=== PATIENT | female | born 1950 | race Caucasian/White ===

== ENCOUNTER 2018-07-03 11:10 | Emergency (ER) | payer MEDICARE, MEDICAID ==
[~2018-07-03] VITALS: Ht 152.4 cm; Wt 46.0 kg
[~2018-07-03 11:10] MED LIST: ALPR1TAB2 PO; AMLO2.5T2 PO; DULO30CA2 PO; FLUT1DIS3 INH; GUAI600T31 PO; HYDR-3237 PO; Hydrocodone Bit/Acetaminophen PO; IPRA12.9 IH; IPRA3AMP30 NPPB; LEVO750T26 PO; METO25TA35 PO; ONDA4TAB7 PO; PRED20TA PO; TIOT18CA INH
[2018-07-03] MEDS ORDERED: LIDOCAINE 1%, 10ML INFIL ONE (12:00)
[2018-07-03 12:04] LABS: MEAN CORPUSCULAR HEMOGLOBIN 26.2 pg (27.0-34.8); MEAN CORPUSCULAR HGB CONC 31.8 g/dL (32.4-35.8); MEAN CORPUSCULAR VOLUME 82.4 fL (80-100); MEAN PLATELET VOLUME 8.2 fL (7.4-10.4); PLATELET COUNT 224 x10^3/uL (130-400); RED BLOOD COUNT 4.92 x10^6/uL (3.82-5.3); RED CELL DISTRIBUTION WIDTH 32.3 % (9.6-15.2)
[2018-07-03] MEDS ORDERED: LIDOCAINE-MPF 1%, 5ML ONE ×2 (12:10→12:12)
[2018-07-03 12:14] LABS: ALBUMIN 3.4 g/dL (3.4-5.0); ANION GAP 7 mmol/L (5-15); CALCIUM 8.7 mg/dL (8.5-10.1); CHLORIDE 109 mmol/L (98-107); CREATININE 0.92 mg/dL (0.55-1.02)
[2018-07-03 12:18] LABS: BASOPHILS # (AUTO) 0.05 x10^3/uL (0-0.1); BASOPHILS % (AUTO) 1 % (0-1); EOSINOPHILS % (AUTO) 0 % (1-7); LYMPHOCYTES # (AUTO) 2.17 x10^3/uL (1-3.4); LYMPHOCYTES % (AUTO) 30 % (22-44); MD MORPH REVIEW ONLY; MONOCYTES # (AUTO) 0.64 x10^3/uL (0.2-0.8); MONOCYTES % (AUTO) 9 % (2-9); NEUTROPHILS # (AUTO) 4.34 x10^3/uL (1.8-6.8); NEUTROPHILS % (AUTO) 60 % (42-75)
[2018-07-03 12:19] LABS: ANISOCYTOSIS 2+; MICROCYTOSIS 1+
[2018-07-03 12:20] LABS: <PLATELET ESTIMATE> ADEQUATE; <PLT MORPHOLOGY> NORMAL PLT MORPH; INTERNATIONAL NORMALIZED RATIO 1.02 (0.93-1.1); OVALOCYTES 1+; POLYCHROMASIA 1+; PROTHROMBIN TIME 10.8 Seconds (9.6-11.5)
[2018-07-03 18:15] VITALS: BP 108/52
== END 2018-07-03 18:15 | disposition home or self-care (01) ==
LOC: ED 13:34 → UNDOADMIN 14:17 → EDIP 14:17 → ED 18:15
DX: S01.81XA Laceration without foreign body of other part of head, initial encounter (principal); R00.1 Bradycardia, unspecified; I10 Essential (primary) hypertension; J44.9 Chronic obstructive pulmonary disease, unspecified; F17.200 Nicotine dependence, unspecified, uncomplicated; X58.XXXA Exposure to other specified factors, initial encounter; Y93.89 Activity, other specified; Y92.009 Unspecified place in unspecified non-institutional (private) residence as the place of occurrence of the external cause; Y99.8 Other external cause status
CPT/HCPCS: 12052; 36415; 70450; 71045; 80048; 80307; 82040; 84443; 85025; 85610; 85730; 93005; 99284; 99285